=== PATIENT | female | born 1970 | race Caucasian/White ===

== ENCOUNTER 2025-06-22 06:21 | Day surgery (SDC) | payer OTHER, SELFPAY | END 2025-06-22 10:39 | disposition home or self-care (01) | LOC: GI 06:21 | PROVIDERS: ATTENDING PHYSICIAN Internal Medicine Gastroenterology | DX: Z12.11 Encounter for screening for malignant neoplasm of colon (principal); R19.4 Change in bowel habit; K57.30 Diverticulosis of large intestine without perforation or abscess without bleeding; R12 Heartburn; K44.9 Diaphragmatic hernia without obstruction or gangrene; K21.00 Gastro-esophageal reflux disease with esophagitis, without bleeding; K29.50 Unspecified chronic gastritis without bleeding; K63.89 Other specified diseases of intestine | CPT/HCPCS: 43239; G0121; 88305; 88342 ==